=== PATIENT | female | born 1970 | race Caucasian/White ===

== ENCOUNTER 2016-09-16 12:09 | Emergency (ER) | payer BC ==
[2016-09-16 12:19] VITALS: BP 159/94; BMI 41.3
--- NOTE | 2016-09-16 12:53 | DR.GENAD ---
HPI - PCP Primary Care Physician: NFD - Complaint/Symptoms Chief Complaint Doctors Comments: Patient states that she had diarrhea x one today at work, took imodium then had generalized stomach pain. She denies history oc COPD or cardiopulmonary disease. Chief Complaint:: PATIENT STATED THAT SHE WAS AT WORK AND STARTED TO HAVE ABD. PAIN THEN DIARRHEA. SHE STATED THAT AFTER THAT SHE STARTED TO HAVE SEVERE ABD. CRAMPS ON THE LEFT SIDE AND BACK. ALSO IS FEELING SHORT OF BREATH. - Source History Provided: Patient - Mode of Arrival Mode of Arrival: Ambulatory - Timing Onset of Chief Complaint: 09/16/16 PMH - PMH Past Medical History: No Past Surgical History: Yes Surgical History: , Cholecystectomy, Hysterectomy - Family History History of Family Medical Conditions: No - Social History Does patient currently use any type of tobacco product: No Have you used tobacco products in the last 12 months: No Type of Tobacco Use: None Does any household member use tobacco: No Alcohol Use: None Do you use any recreational Drugs:: No Lives With: Family Lives Where: Home - infectious screening In the last 2 months have you had wt loss of >10#?: NO Have you had fever, night sweats or hemotysis?: No Have you traveled outside the country in the last 6 months?: No Isolation: Standard ROS - Review of Systems Constitutional: No Symptoms Reported Eyes: No Symptoms Reported ENTM: No Symptoms Reported Respiratoy: No Symptoms Reported Cardiovascular: No Symptoms Reported, Other (sob) Gastrointestinal/Abdominal: No Symptoms Reported Genitourinary: No Symptoms Reported Neurological: No Symptoms Reported Musculoskeletal: No Symptoms Reported Integumentary: No Symptoms Reported Hematologic/Lymphatic: No Symptoms Reported Endocrine: No Symptoms Reported Psychiatric: No Symptoms Reported All Other Systems: Reviewed and Negative PE - Vital Signs Vitals: Temperature 98.6 F Pulse Rate 71 Respiratory Rate 20 Blood Pressure 159/94 O2 Sat by Pulse Oximetry 100 - General Limitations: No Limitations General Appearance: Alert, In No Apparent Distress - Head Head Exam: Normal Inspection, Atraumatic - Eyes Eye exam: Normal Appearance, PERRL, EOMI - ENT ENT Exam: Normal Exam, Normal Oropharynx External Ear Exam: Normal External Inspection TM/Canal Exam: Bilateral Normal Nose Exam: Normal Nose Exam Mouth Exam: Normal Inspection Throat Exam: Normal Inspection - Neck Neck Exam: Normal Inspection - Chest Chest Inspection: Normal Inspection - Respiratory Respiratory Exam: Other (wheeze) Respiratory Exam: Bilateral Wheezing - Cardiovascular Cardiovascular Exam: Regular Rate - Abdominal Exam Abdominal Exam: Normal Inspection Abdominal Tenderness: LUQ, Suprapubic - Extremities Extremities Exam: Normal Inspection - Back Back Exam: Normal Inspection - Neurologic Neurological Exam: Alert, Oriented X3, CN II-XII Intact - Psychiatric Psychiatric Exam: Normal Affect - Skin Skin Exam: Warm, Dry, Intact ROR - Labs Reviewed Result Diagrams: 09/16/16 13:05 09/16/16 13:05 Laboratory: WBC 8.3 X10^3/uL (3.6-10.0) 09/16/16 13:05 RBC 4.74 X10^6/uL (3.5-5.4) 09/16/16 13:05 Hgb 13.2 g/dL (12.0-16.0) 09/16/16 13:05 Hct 40.0 % (36.0-47.0) 09/16/16 13:05 MCV 84.4 fL (80.0-100.0) 09/16/16 13:05 MCH 27.9 pg (27.0-34.0) 09/16/16 13:05 MCHC 33.1 g/dL (33.0-35.0) 09/16/16 13:05 RDW 12.8 % (11.6-16.5) 09/16/16 13:05 Plt Count 255 X10^3/uL (150.0-450.0) 09/16/16 13:05 MPV 9.5 fL (7.4-11.0) 09/16/16 13:05 Neut % 72.7 % (42.0-75.0) 09/16/16 13:05 Lymph % 21.5 % (21.0-51.0) 09/16/16 13:05 [place] % 4.0 % (0.0-13.0) 09/16/16 13:05 Eos % 0.9 % (0.9-2.9) 09/16/16 13:05 Baso % 0.9 % (0.2-1.0) 09/16/16 13:05 Neut # 6.0 x10^3/uL (2.2-4.8) H 09/16/16 13:05 Lymph # 1.8 X10^3/uL (1.3-2.9) 09/16/16 13:05 [place] # 0.3 x10^3/uL (0.3-0.8) 09/16/16 13:05 Eos # 0.1 x10^3/uL (0.0-0.2) 09/16/16 13:05 Baso # 0.1 X10^3/uL (0.0-0.1) 09/16/16 13:05 Absolute Nucleated RBC 0.0 /100WBC 09/16/16 13:05 Sodium 144 mmol/L (136-145) 09/16/16 13:05 Corrected Sodium 144 mmol/L (136-145) 09/16/16 13:05 Potassium 3.6 mmol/L (3.5-5.1) 09/16/16 13:05 Chloride 104 mmol/L (98-107) 09/16/16 13:05 Carbon Dioxide 31.3 mmol/L (21-32) 09/16/16 13:05 BUN 18 mg/dL (7-18) 09/16/16 13:05 Creatinine 1.03 mg/dL (0.55-1.02) H 09/16/16 13:05 Est GFR (MDRD) Af Amer > 60 (>60) 09/16/16 13:05 Est GFR (MDRD) Non-Af > 60 (>60) 09/16/16 13:05 Glucose 114 mg/dL (65-99) H 09/16/16 13:05 Calcium 9.2 mg/dL (8.5-10.1) 09/16/16 13:05 Corrected Calcium TNP 09/16/16 13:05 Total Bilirubin 0.30 mg/dL (0.2-1.0) 09/16/16 13:05 AST 28 Units/L (15-37) 09/16/16 13:05 ALT 61 Units/L (12-78) 09/16/16 13:05 Alkaline Phosphatase 87 Units/L (46-116) 09/16/16 13:05 C-Reactive Protein 5.30 mg/L (0-3.0) H 09/16/16 13:05 Total Protein 8.0 g/dL (6.4-8.2) 09/16/16 13:05 Albumin 4.0 g/dL (3.4-5.0) 09/16/16 13:05 Globulin 4.0 g/dL (2.5-4.5) 09/16/16 13:05 Albumin/Globulin Ratio 1.0 Ratio (1.1-2.1) L 09/16/16 13:05 H. pylori IgG Antibody Negative (NEGATIVE) 09/16/16 13:05 - XRAY XRAY Interpreted by: Radiologist (Chest: no acute cardiopulmonary disease) - Diagnosis Discharge Problem: Acute bronchospasm - Discharge Plan Condition: Stable - Follow ups/Referrals Follow ups/Referrals: NFD,None [Primary Care Provider] - 3 days - Instructions
[2016-09-16] MEDS ORDERED: BENTYL I.M. INJ 10 MG IM ONE ×2 (12:56→12:57)
[2016-09-16] MEDS ORDERED: DUONEB 0.5 MG/3 MG NEB ONE (13:11)
[2016-09-16] MEDS ORDERED: DUONEB 0.5 MG/3 MG ONE (13:13)
[2016-09-16 13:15] LABS: BASOPHILS # (AUTO) 0.1 X10^3/uL (0.0-0.1); BASOPHILS % (AUTO) 0.9 % (0.2-1.0); EOSINOPHILS # (AUTO) 0.1 x10^3/uL (0.0-0.2); EOSINOPHILS % (AUTO) 0.9 % (0.9-2.9); HEMOGLOBIN 13.2 g/dL (12.0-16.0); LYMPHOCYTES # (AUTO) 1.8 X10^3/uL (1.3-2.9); LYMPHOCYTES % (AUTO) 21.5 % (21.0-51.0); MEAN CORPUSCULAR HEMOGLOBIN 27.9 pg (27.0-34.0); MEAN CORPUSCULAR HGB CONC 33.1 g/dL (33.0-35.0); MEAN CORPUSCULAR VOLUME 84.4 fL (80.0-100.0); MEAN PLATELET VOLUME 9.5 fL (7.4-11.0); MONOCYTES # (AUTO) 0.3 x10^3/uL (0.3-0.8); NEUTROPHILS % (AUTO) 72.7 % (42.0-75.0); PLATELET COUNT 255 X10^3/uL (150.0-450.0); RED BLOOD COUNT 4.74 X10^6/uL (3.5-5.4); RED CELL DISTRIBUTION WIDTH 12.8 % (11.6-16.5); WHITE BLOOD COUNT 8.3 X10^3/uL (3.6-10.0)
[2016-09-16 13:30] LABS: ALANINE AMINOTRANSFERASE 61 Units/L (12-78); ALKALINE PHOSPHATASE 87 Units/L (46-116); ASPARTATE AMINO TRANSFERASE 28 Units/L (15-37); BLOOD UREA NITROGEN 18 mg/dL (7-18); CALCIUM 9.2 mg/dL (8.5-10.1); CARBON DIOXIDE 31.3 mmol/L (21-32); CHLORIDE 104 mmol/L (98-107); COR NA(FOR HYPERGLY) 144 mmol/L (136-145); CREATININE 1.03 mg/dL (0.55-1.02); GLUCOSE 114 mg/dL (65-99); SODIUM 144 mmol/L (136-145); eGFR BLACK RACES > 60 (>60); eGFR NON BLACK RACES > 60 (>60)
--- NOTE | 2016-09-16 13:44 | RAD ---
HISTORY: Wheezing Study: Single view chest. Comparison: None. Findings: The trachea is midline. The cardiac silhouette is accentuated by underinflation but appears to be i n the upper limits of normal without radiographic evidence for CHF or pulmonary edema. The lungs ar e clear without focal infiltrate or effusion. The bony thorax is unremarkable. IMPRESSION: 1. No acute cardiopulmonary disease. Reported By:
[2016-09-16 13:53] LABS: BILIRUBIN,URINE NEGATIVE (NEGATIVE); BLOOD/HEMOGLOBIN,URINE 5+ (NEGATIVE); GLUCOSE, URINE NEGATIVE (NEGATIVE); KETONES,URINE NEGATIVE (NEGATIVE); LEUKOCYTE ESTERASE ,URINE NEGATIVE (NEGATIVE); NITRITES,URINE NEGATIVE (NEGATIVE); PROTEIN,URINE 2+ (NEGATIVE); UROBILINOGEN,URINE NORMAL (NORMAL)
[2016-09-16 14:01] LABS: APPEARANCE,URINE CLEAR (CLEAR); COLOR,URINE YELLOW (YELLOW)
[2016-09-16 14:02] LABS: AMORPHOUS SEDIMENT,UR TRACE /HPF (NEGATIVE); BACTERIA,URINE TRACE /HPF (NEGATIVE); HYALINE CASTS, URINE FEW /LPF (NEGATIVE); MUCUS,URINE MODERATE /HPF (NEGATIVE); RBC,URINE 20 - 30 /HPF (NEGATIVE); SQUAMOUS EPITHELIAL CELL,UR MODERATE /HPF (NEGATIVE)
== END 2016-09-16 14:20 | disposition home or self-care (01) ==
LOC: ER 12:19
DX: J98.01 Acute bronchospasm (principal)
CPT/HCPCS: 36415; 71010; 80053; 81001; 85025; 86140; 86677; 94640; 96372; 99282; 99283; J0500; J7620

== ENCOUNTER → 2016-10-12 | Outpatient (CLI) | payer BC ==
[2016-09-16 12:19] VITALS: BP 159/94
[2016-10-12 09:51] LABS: BILIRUBIN,URINE NEGATIVE (NEGATIVE); BLOOD/HEMOGLOBIN,URINE NEGATIVE (NEGATIVE); GLUCOSE, URINE NEGATIVE (NEGATIVE); KETONES,URINE NEGATIVE (NEGATIVE); LEUKOCYTE ESTERASE ,URINE NEGATIVE (NEGATIVE); NITRITES,URINE NEGATIVE (NEGATIVE); PROTEIN,URINE 1+ (NEGATIVE); UROBILINOGEN,URINE NORMAL (NORMAL)
[2016-10-12 10:10] LABS: BASOPHILS % (AUTO) 0.5 % (0.2-1.0); EOSINOPHILS # (AUTO) 0.1 x10^3/uL (0.0-0.2); EOSINOPHILS % (AUTO) 1.6 % (0.9-2.9); HEMATOCRIT 35.7 % (36.0-47.0); HEMOGLOBIN 12.1 g/dL (12.0-16.0); LYMPHOCYTES # (AUTO) 1.4 X10^3/uL (1.3-2.9); LYMPHOCYTES % (AUTO) 25.4 % (21.0-51.0); MEAN CORPUSCULAR HEMOGLOBIN 28.5 pg (27.0-34.0); MONOCYTES # (AUTO) 0.3 x10^3/uL (0.3-0.8); MONOCYTES % (AUTO) 5.4 % (0.0-13.0); NEUTROPHILS # (AUTO) 3.8 x10^3/uL (2.2-4.8); NEUTROPHILS % (AUTO) 67.1 % (42.0-75.0); PLATELET COUNT 233 X10^3/uL (150.0-450.0); RED BLOOD COUNT 4.25 X10^6/uL (3.5-5.4); RED CELL DISTRIBUTION WIDTH 12.9 % (11.6-16.5); WHITE BLOOD COUNT 5.7 X10^3/uL (3.6-10.0)
[2016-10-12 10:17] LABS: ALANINE AMINOTRANSFERASE 52 Units/L (12-78); ALBUMIN 3.5 g/dL (3.4-5.0); ALKALINE PHOSPHATASE 71 Units/L (46-116); ASPARTATE AMINO TRANSFERASE 24 Units/L (15-37); BLOOD UREA NITROGEN 16 mg/dL (7-18); CALCIUM 8.9 mg/dL (8.5-10.1); CHLORIDE 107 mmol/L (98-107); CHOL/HDL RATIO 6.7 (0.0-5.0); CHOLESTEROL 174 mg/dL (0-200); CREATININE 0.86 mg/dL (0.55-1.02); GLUCOSE 97 mg/dL (65-99); HDL CHOLESTEROL 26 mg/dL (40-60); PHOSPHORUS 3.9 mg/dL (2.6-4.7); SODIUM 144 mmol/L (136-145); TOTAL PROTEIN 7.1 g/dL (6.4-8.2); TRIGLYCERIDES 98 mg/dL (0-150); TSH (3RD GENERATION) 1.893 uIU/mL (0.358-3.74); URIC ACID 6.5 mg/dL (2.6-6.0); eGFR BLACK RACES > 60 (>60); eGFR NON BLACK RACES > 60 (>60)
[2016-10-12 10:18] LABS: APPEARANCE,URINE HAZY (CLEAR); BACTERIA,URINE TRACE /HPF (NEGATIVE); COLOR,URINE YELLOW (YELLOW); RBC,URINE 0-2 /HPF (NEGATIVE); SQUAMOUS EPITHELIAL CELL,UR RARE /HPF (NEGATIVE)
--- NOTE | 2016-10-12 13:06 | MG ---
Examination: Bilateral screening mammogram. Clinical history: Routine screening. Technique: Digital CC and MLO views of both breasts were obtained. Computer aided detection analysis was performed and used during the interpretation. Comparison: None available. Baseline mammogram. Findings: The breasts are composed predominantly of adipose tissue. Benign-appearing calcifications are noted in the breasts bilaterally. No suspicious mass, area of architectural distortion or suspicious cluster of microcalcifications is noted. Impression: 1. No mammographic evidence of malignancy. BI-RADS category 2-benign findings. Recommend routine annual screening mammogram. Diagnostic CAD was utilized and reviewed. * 0 (ZERO) - ASSESSMENT INCOMPLETE; ADDITIONAL IMAGING IS NEEDED. * 0C - ASSESSMENT INCOMPLETE, NEEDS ADDITIONAL IMAGING EVALUATION AND/OR PRIOR MAMMOGRAMS FOR COMPAR LEONOR. * 1/1 (ONE) - NEGATIVE. * 2/II (TWO) - BENIGN FINDINGS. * 3/III (THREE) - PROBABLY BENIGN FINDING; SHORT INTERVAL FOLLOW-UP SUGGESTED. * 4/IV (FOUR) - SUSPICIOUS ABNORMALITY; BIOPSY SHOULD BE CONSIDERED. * 5/V - HIGHLY SUSPICIOUS OF MALIGNANCY; BIOPSY SHOULD BE PERFORMED. * 6/IV - KNOWN BIOPSY PROVEN MALIGNANCY-APPROPRIATE ACTION SHOULD BE TAKEN. A NEGATIVE X-RAY REPORT SHOULD NOT DELAY BIOPSY IF A DOMINANT OR CLINICALLY SUSPICIOUS MASS IS PRESENT; 4 TO 8 PERCENT OF CANCERS ARE NOT IDENTIFIED BY X-RAY. A NEGATIVE REPORT MAY REINFORCE THE CLINICAL IMPRESSION. ADENOSIS AND DENSE BREASTS MAY OBSCURE AN UNDERLYING NEOPLASM. Reported By:
== END ==
LOC: RAD 09:13
PROVIDERS: ATTEND Family Medicine
DX: Z00.00 Encounter for general adult medical examination without abnormal findings (principal); Z12.31 Encounter for screening mammogram for malignant neoplasm of breast
CPT/HCPCS: 36415; 77067; 80053; 80061; 80069; 81001; 84443; 84550; 85025